=== PATIENT | male | born 1945 | race Caucasian/White ===

== ENCOUNTER 2022-06-30 21:19 | Emergency (ER) | payer MEDICARE ==
--- NOTE | 2022-06-30 21:28 | ERPHSYRPT ---
- History of Present Illness Time Seen by Provider: 06/30/22 21:28 Historian: patient, EMS Exam Limitations: no limitations Physician History: This is a 76-year-old white male patient who has no cardiac history but does have a history of hyperlipidemia and hypertension and presents via EMS service following vomiting and shortness of breath at home. Patient states he "felt off" all day. He took a home COVID test which was negative. After a large supper, patient felt bloated belchy and became short of breath. He then vomited a large amount of emesis. After the emesis, he states his symptoms completely resolved. Upon arrival to the emergency department, he states that he feels pretty good. He denies chest pain at this time. He denies shortness of breath. He has no abdominal pain. Timing/Duration: today Activities at Onset: none Quality: other (Denies pain) Abdominal Pain Onset Location: other (Denies pain) Severity of Pain-Max: none Severity of Pain-Current: none Modifying Factors: Improves With: vomiting (Proved his symptoms) Associated Symptoms: nausea, shortness of breath, vomiting (Improved his symptoms) Previous symptoms: no prior history Allergies/Adverse Reactions: Iodine and Iodide Containing Produc Allergy (Unknown, Verified 06/30/22 21:21) Home Medications: Atorvastatin Calcium [Lipitor] 1 tablet PO HS 04/28/15 [History] Metoprolol Succinate 50 mg [Toprol Xl 50 MG] 50 mg PO DAILY 04/28/15 [History] Tamsulosin HCl 0.4 mg [Flomax 0.4 MG] 0.4 mg PO DAILY 06/30/22 [History] Travel Risk - International Travel Have you traveled outside of the country in past 3 weeks: No - Coronavirus Screening Are you exhibiting any of the following symptoms?: Yes Symptoms: Shortness of Breath, Vomiting/Diarrhea Close contact with a COVID-19 positive Pt in past 14-21 Days: No - Review of Systems Constitutional: No Symptoms Eyes: No Symptoms Ears, Nose, & Throat: No Symptoms Respiratory: Dyspnea Cardiac: No Symptoms Abdominal/Gastrointestinal: Nausea, Vomiting, No Diarrhea, No Constipation Genitourinary Symptoms: No Symptoms Musculoskeletal: No Symptoms Skin: No Symptoms Neurological: No Symptoms Psychological: No Symptoms Endocrine: No Symptoms Hematologic/Lymphatic: No Symptoms Immunological/Allergic: No Symptoms All Other Systems: Reviewed and Negative - Past Medical History Pertinent Past Medical History: Yes Neurological History: No Pertinent History ENT History: No Pertinent History Cardiac History: No Pertinent History, High Cholesterol, Hypertension Respiratory History: No Pertinent History Endocrine Medical History: No Pertinent History Musculoskeletal History: No Pertinent History GI Medical History: No Pertinent History History: No Pertinent History Psycho-Social History: No Pertinent History Male Reproductive Disorders: No Pertinent History - Past Surgical History Past Surgical History: No Neuro Surgical History: No Pertinent History Cardiac: No Pertinent History Respiratory: No Pertinent History Gastrointestinal: No Pertinent History Genitourinary: No Pertinent History Musculoskeletal: No Pertinent History Male Surgical History: No Pertinent History - Social History Smoking Status: Never smoker Exposure to second hand smoke: No Drug Use: none - Nursing Vital Signs Nursing Vital Signs: Initial Vital Signs Temperature 98.2 F 06/30/22 21:23 Pulse Rate 91 H 06/30/22 21:23 Respiratory Rate 16 06/30/22 21:23 Blood Pressure 127/88 06/30/22 21:23 O2 Sat by Pulse Oximetry 96 06/30/22 21:23 Pain Scale Pain Intensity 0 - Physical Exam General Appearance: no apparent distress, alert Eye Exam: PERRL/EOMI, eyes nml inspection Ears, Nose, Throat Exam: normal ENT inspection, moist mucous membranes Neck Exam: normal inspection, non-tender, supple, full range of motion Respiratory Exam: normal breath sounds, lungs clear, airway intact, No chest tenderness, No respiratory distress Cardiovascular Exam: regular rate/rhythm, normal heart sounds, normal peripheral pulses Gastrointestinal/Abdomen Exam: soft, normal bowel sounds, No tenderness Rectal Exam: not done Back Exam: normal inspection, normal range of motion, No CVA tenderness, No vertebral tenderness Extremity Exam: normal inspection, normal range of motion, pelvis stable Neurologic Exam: alert, oriented x 3, cooperative, member service representative II-XII nml as tested, normal mood/affect, nml cerebellar function, nml station & gait, sensation nml Skin Exam: normal color, warm, dry Lymphatic Exam: No adenopathy SpO2 Interpretation: normal O2 Delivery: Room Air - Course Nursing assessment & vital signs reviewed: Yes EKG Interpreted by Me: RATE (91), Sinus Rhythm, NORMAL AXIS, NORMAL INTERVALS, NORMAL QRS, NORMAL ST-T, Other (No acute ischemic changes on today's EKG. This EKG was interpreted by me.) Ordered Tests: Active Orders 24 hr Category Date Time Status EKG-ER Only STAT Care 06/30/22 21:32 Active IV Insertion STAT Care 06/30/22 21:32 Active ABDOMEN AND PELVIS W/0 CONTRAS [CT] Stat Exams 06/30/22 21:32 Taken AMYLASE Stat Lab 06/30/22 22:04 Completed CBC W DIFF Stat Lab 06/30/22 22:04 Completed CMP Stat Lab 06/30/22 22:04 Completed LIPASE Stat Lab 06/30/22 22:04 Completed TROPONIN Q4H Lab 06/30/22 22:04 Completed TROPONIN Q4H Lab 07/01/22 01:45 Ordered TROPONIN Q4H Lab 07/01/22 05:45 Ordered UA W/RFX UR CULTURE Stat Lab 06/30/22 23:07 Completed Medication Summary Discontinued Medications Generic Name Dose Route Start Last Admin Trade Name Freq PRN Reason Stop Dose Admin Sodium Chloride 1,000 mls @ 999 mls/hr 06/30/22 21:32 06/30/22 23:27 Sodium Chloride 0.9% 1000 Ml IV 06/30/22 22:32 Infused .Q1H1M STA Infusion Sodium Chloride Confirm 06/30/22 21:51 Sodium Chloride 0.9% 1000 Ml Administered 06/30/22 21:52 Dose 1,000 mls @ ud .ROUTE .STK-MED ONE Metronidazole 500 mg 06/30/22 23:54 Metronidazole 500 Mg Tablet PO 06/30/22 23:55 STAT ONE Ondansetron HCl 4 mg 06/30/22 21:32 06/30/22 21:54 Ondansetron Hcl 4 Mg/2 Ml Vial IV 06/30/22 21:33 4 mg STAT ONE Administration Ondansetron HCl Confirm 06/30/22 21:51 Ondansetron Hcl 4 Mg/2 Ml Vial Administered 06/30/22 21:52 Dose 4 mg .ROUTE .STK-MED ONE Lab/Rad Data: Laboratory Result Diagrams 06/30/22 22:04 06/30/22 22:04 Laboratory Results 06/30/22 06/30/22 06/30/22 Range/Units 23:07 22:04 22:04 WBC (4.0-10.5) x10^3/uL RBC (4.1-5.6) x10^6/uL Hgb (12.5-18.0) g/dL Hct (42-50) % MCV (78-100) fL MCH (26-32) pg MCHC (32-36) g/dL RDW (11.5-14.0) % Plt Count (150-450) x10^3/uL MPV (7.5-11.0) fL Gran % (36.0-66.0) % Immature Gran % (Auto) (0.00-0.4) % Nucleat RBC Rel Count (0.00-0.1) % Eos # (Auto) (0-0.5) x10^3/uL Immature Gran # (Auto) (0.00-0.03) x10^3u/L Absolute Lymphs (auto) (1.0-4.6) x10^3/uL Absolute Monos (auto) (0.0-1.3) x10^3/uL Absolute Nucleated RBC (0.00-0.01) x10^3u/L Lymphocytes % (24.0-44.0) % Monocytes % (0.0-12.0) % Eosinophils % (0.00-5.0) % Basophils % (0.0-0.4) % Absolute Granulocytes (1.4-6.9) x10^3/uL Basophils # (0-0.4) x10^3/uL Sodium (137-145) mmol/L Potassium (3.5-5.1) mmol/L Chloride (98-107) mmol/L Carbon Dioxide (22-30) mmol/L Anion Gap (5-15) MEQ/L BUN (9-20) mg/dL Creatinine (0.66-1.25) mg/dL Estimated GFR ML/MIN Glucose (74-106) mg/dL Calcium (8.4-10.2) mg/dL Total Bilirubin (0.2-1.3) mg/dL AST (17-59) U/L ALT (0-50) U/L Alkaline Phosphatase (38-126) U/L Troponin I < 0.012 (0.000-0.034) ng/mL Serum Total Protein (6.3-8.2) g/dL Albumin (3.5-5.0) g/dL Amylase (30-110) U/L Lipase (23-300) U/L Urine Color Yellow (Yellow) Urine Appearance Clear (Clear) Urine pH 5.5 (4.6-8.0) Ur Specific [place] 1.025 (1.005-1.030) Urine Protein 30 (Negative) Urine Glucose (UA) Negative (Negative) mg/dL Urine Ketones Trace A (Negative) Urine Blood Negative (Negative) Urine Nitrite Negative (Negative) Urine Bilirubin Negative (Negative) Urine Urobilinogen 0.2 (0.2) mg/dL Ur Leukocyte Esterase Negative (Negative) U Hyaline Cast (Auto) NONE SEEN (0-2) /LPF Urine Microscopic RBC 0-2 (0-5) /HPF Urine Microscopic WBC 0-2 (0-5) /HPF Ur Epithelial Cells None Seen (None Seen) /HPF Urine Bacteria None Seen (None Seen) /HPF Urine Culture Reflexed NO (NO) Influenza Type A Ag NEGATIVE (NEGATIVE) Influenza Type B Ag NEGATIVE (NEGATIVE) RSV (PCR) NEGATIVE (Negative) SARS-CoV-2 (PCR) NEGATIVE (NEGATIVE) 06/30/22 06/30/22 Range/Units 22:04 22:04 WBC 8.6 (4.0-10.5) x10^3/uL RBC 4.98 (4.1-5.6) x10^6/uL Hgb 15.3 (12.5-18.0) g/dL Hct 45.7 (42-50) % MCV 91.8 (78-100) fL MCH 30.7 (26-32) pg MCHC 33.5 (32-36) g/dL RDW 12.3 (11.5-14.0) % Plt Count 195 (150-450) x10^3/uL MPV 10.1 (7.5-11.0) fL Gran % 86.3 H (36.0-66.0) % Immature Gran % (Auto) 0.1 (0.00-0.4) % Nucleat RBC Rel Count 0.0 (0.00-0.1) % Eos # (Auto) 0.15 (0-0.5) x10^3/uL Immature Gran # (Auto) 0.01 (0.00-0.03) x10^3u/L Absolute Lymphs (auto) 0.63 L (1.0-4.6) x10^3/uL Absolute Monos (auto) 0.38 (0.0-1.3) x10^3/uL Absolute Nucleated RBC 0.00 (0.00-0.01) x10^3u/L Lymphocytes % 7.3 L (24.0-44.0) % Monocytes % 4.4 (0.0-12.0) % Eosinophils % 1.7 (0.00-5.0) % Basophils % 0.2 (0.0-0.4) % Absolute Granulocytes 7.43 H (1.4-6.9) x10^3/uL Basophils # 0.02 (0-0.4) x10^3/uL Sodium 136 L (137-145) mmol/L Potassium 4.1 (3.5-5.1) mmol/L Chloride 102 (98-107) mmol/L Carbon Dioxide 29 (22-30) mmol/L Anion Gap 8.7 (5-15) MEQ/L BUN 18 (9-20) mg/dL Creatinine 0.97 (0.66-1.25) mg/dL Estimated GFR > 60.0 ML/MIN Glucose 114 H (74-106) mg/dL Calcium 9.0 (8.4-10.2) mg/dL Total Bilirubin 0.70 (0.2-1.3) mg/dL AST 46 (17-59) U/L ALT 60 H (0-50) U/L Alkaline Phosphatase 79 (38-126) U/L Troponin I (0.000-0.034) ng/mL Serum Total Protein 7.4 (6.3-8.2) g/dL Albumin 4.5 (3.5-5.0) g/dL Amylase 85 (30-110) U/L Lipase 87 (23-300) U/L Urine Color (Yellow) Urine Appearance (Clear) Urine pH (4.6-8.0) Ur Specific [place] (1.005-1.030) Urine Protein (Negative) Urine Glucose (UA) (Negative) mg/dL Urine Ketones (Negative) Urine Blood (Negative) Urine Nitrite (Negative) Urine Bilirubin (Negative) Urine Urobilinogen (0.2) mg/dL Ur Leukocyte Esterase (Negative) U Hyaline Cast (Auto) (0-2) /LPF Urine Microscopic RBC (0-5) /HPF Urine Microscopic WBC (0-5) /HPF Ur Epithelial Cells (None Seen) /HPF Urine Bacteria (None Seen) /HPF Urine Culture Reflexed (NO) Influenza Type A Ag (NEGATIVE) Influenza Type B Ag (NEGATIVE) RSV (PCR) (Negative) SARS-CoV-2 (PCR) (NEGATIVE) - Progress Progress: improved Progress Note: 06/30/22 23:55 CT scan of the abdomen pelvis without contrast shows a picture c/w enteritis 06/30/22 23:57 Counseled pt/family regarding: lab results, diagnosis, need for follow-up, rad results - Departure Departure Disposition: Home Clinical Impression: Enteritis Condition: Stable Critical Care Time: No Referrals: MARGO MCGARRY MD [Primary Care Provider] - Follow up/PCP as directed Additional Instructions: Drink plenty of fluids. take antibiotics as prescribed Prescriptions: Ondansetron ODT 4 MG [Zofran Odt 4 mg] 4 mg PO Q6H PRN PRN #10 tablet PRN Reason: Vomiting Metronidazole 500 mg [Flagyl 500 MG] 500 mg PO TID #21 tablet
[2022-06-30] MEDS ORDERED: Sodium Chloride 0.9% 1000 ML 1,000 ML IV STA (21:32)
[2022-06-30] MEDS ORDERED: Zofran 4 MG/2 ML VIAL IV ONE (21:32)
[2022-06-30] MEDS ORDERED: Zofran 4 MG/2 ML VIAL ONE (21:51)
[2022-06-30] MEDS ORDERED: Sodium Chloride 0.9% 1000 ML 1,000 ML ONE (21:51)
[2022-06-30 22:07] LABS: Absolute Neutrophil Ct (ANC) 7.43 x10^3/uL (1.4-6.9); Basophil (Absolute #) 0.02 x10^3/uL (0-0.4); Eosinophil % 1.7 % (0.00-5.0); Eosinophil (Absolute #) 0.15 x10^3/uL (0-0.5); Hematocrit 45.7 % (42-50); Hemoglobin 15.3 g/dL (12.5-18.0); Lymphocyte (Absolute #) 0.63 x10^3/uL (1.0-4.6); Lymphocytes % 7.3 % (24.0-44.0); Mean Cell Volume 91.8 fL (78-100); Mean Corpuscular Hemoglobin 30.7 pg (26-32); Mean Corpuscular Hgb Concent. 33.5 g/dL (32-36); Mean Platelet Volume 10.1 fL (7.5-11.0); Monocyte (Absolute #) 0.38 x10^3/uL (0.0-1.3); Monocytes % 4.4 % (0.0-12.0); Neutrophil % 86.3 % (36.0-66.0); Platelet Count 195 x10^3/uL (150-450); Red Blood Count 4.98 x10^6/uL (4.1-5.6); Red Cell Distribution Width 12.3 % (11.5-14.0); White Blood Count 8.6 x10^3/uL (4.0-10.5)
[2022-06-30 22:21] LABS: ALBUMIN 4.5 g/dL (3.5-5.0); ALKALINE PHOSPHATASE 79 U/L (38-126); AMYLASE 85 U/L (30-110); ANION GAP 8.7 MEQ/L (5-15); BLOOD UREA NITROGEN 18 mg/dL (9-20); CHLORIDE 102 mmol/L (98-107); Carbon Dioxide 29 mmol/L (22-30); Creatinine 1 0.97 mg/dL (0.66-1.25); EST GLOMERULAR FILTRATION RATE > 60.0 ML/MIN; Glucose 114 mg/dL (74-106); LIPASE 87 U/L (23-300); Potassium 4.1 mmol/L (3.5-5.1); SGOT/AST 46 U/L (17-59); SGPT/ALT 60 U/L (0-50); SODIUM 136 mmol/L (137-145); Total Protein 7.4 g/dL (6.3-8.2)
[2022-06-30 22:42] LABS: INFLUENZA A NEGATIVE (NEGATIVE); INFLUENZA B NEGATIVE (NEGATIVE); RESPIRATORY SYNCTIAL VIRUS NEGATIVE (Negative); SARS-CoV-2 Xpert Express NEGATIVE (NEGATIVE)
[2022-06-30 23:27] LABS: Appearance Clear (Clear); Bacteria None Seen /HPF (None Seen); Bilirubin Negative (Negative); Blood Negative (Negative); Epithelial Cells None Seen /HPF (None Seen); Glucose, Urine Negative (Negative); Hyaline Casts NONE SEEN /LPF (0-2); Ketones Trace (Negative); Leukocyte Esterase Negative (Negative); Nitrite Negative (Negative); Ph 5.5 (4.6-8.0); Protein,Urine Dip 30 (Negative); RBC 0-2 /HPF (0-5); Specific Gravity 1.025 (1.005-1.030); Urobilinogen 0.2 mg/dL (0.2); WBC 0-2 /HPF (0-5)
[2022-06-30 23:29] LABS: ADD URINE CULTURE? NO (NO)
[2022-06-30] MEDS ORDERED: Flagyl 500 MG PO ONE (23:54)
[2022-06-30] MEDS ORDERED: Flagyl 500 MG ONE (23:59)
[2022-07-01 00:10] VITALS: BP 120/70; PULSE 82; O2SAT 95
--- NOTE | 2022-07-01 08:35 | XRAY ---
Indication: Short of breath, vomiting, and weakness. Multiple contiguous axial images obtained through the abdomen and pelvis without contrast. Comparison: None Lung bases clear. Heart not enlarged. Small hiatal hernia. Noncontrasted stomach and bowel loops appear nonobstructed. Several small bowel loops are mildly fluid distended with wall thickening favoring enteritis in the right clinical setting. Normal appendix. Gallbladder demonstrates tiny gallstones in the dependent portion. Right upper kidney demonstrates 1.2 cm benign chunky cortical calcification and 1 cm cortical cyst. Remaining liver, pancreas, spleen, adrenal glands, left kidney, ureters, and bladder are unremarkable for noncontrast exam. Mild scattered aortoiliac calcifications without AAA. Osseous structures intact with mild/moderate degenerative changes throughout the spine and both hips. Small fatty bilateral inguinal hernias. Impression: 1. Mild fluid distended small bowel loops with wall thickening. Rule out enteritis. 2. Tiny gallstones better evaluated with sonogram if clinically warranted. 3. Chronic findings including arteriosclerotic disease, right renal benign chunky calcification/cyst, chronic bony findings, and fatty bilateral groin hernias. Comment: Preliminary interpretation made by C. No critical discrepancy.
== END 2022-07-01 00:25 | disposition home or self-care (01) ==
LOC: ED 21:19
DX: K52.9 Noninfective gastroenteritis and colitis, unspecified (principal); R11.10 Vomiting, unspecified; R06.02 Shortness of breath; E78.5 Hyperlipidemia, unspecified; I10 Essential (primary) hypertension; Z79.899 Other long term (current) drug therapy; Z20.828 Contact with and (suspected) exposure to other viral communicable diseases
CPT/HCPCS: 0241U; 36415; 74176; 80053; 81001; 82150; 83690; 84484; 85025; 93005; 96360; 96374; 99284; J2405; A9270-GY

== ENCOUNTER 2022-08-14 08:16 | Day surgery (SDC) | payer MEDICARE ==
--- NOTE | 2022-08-01 14:06 | HP ---
DATE OF SURGERY: 08/14/2022 HISTORY OF PRESENT ILLNESS: A 76-year-old gentleman apparently had some nausea second episode and had emergency department visit. He had cardiac issue ruled out. CT scan showed cholelithiasis. He denies any current abdominal pain. PAST MEDICAL HISTORY: Hypertension, hyperlipidemia, hypercholesterolemia. Enteritis. He had CT scan had cholelithiasis. Benign prostatic hypertrophy. PAST SURGICAL HISTORY: Colonoscopy by Dr. Wilson in 2015. MEDICATIONS: Atorvastatin, Flomax, Toprol, Lipitor. He had been on metronidazole recently and ondansetron in the past. ALLERGIES: LATEX. IODINE. FAMILY HISTORY: Negative in regards to this problem. SOCIAL HISTORY: No smoking. REVIEW OF SYSTEMS: Fourteen systems reviewed. No chest pain or palpitations. Other systems negative or noncontributory as above and per preadmission questionnaire. PHYSICAL EXAMINATION: BMI 28.25. Height 6'3", weight 220. GENERAL: No acute distress. HEENT: Sclerae nonicteric. NECK: No JVD. CHEST: Breath sounds symmetrical. CVS: Regular rate and rhythm. ABDOMEN: Soft. No peritoneal signs. EXTREMITIES: No cyanosis or edema. NEURO: Alert, oriented, moving extremities symmetrically. RECTAL: Deferred timed to endoscopy exam. PSYCH: Appropriate mood and affect. SKIN: Dry. IMPRESSION: 1) Nausea requiring hospital visit. 2) Cholelithiasis with acute exacerbation of chronic cholecystitis, symptomatic cholelithiasis. PLAN: Discussed options of cholecystectomy. Shown the gallbladder pamphlet and risk sheet, explained the procedure in detail but not limited to bleeding or infection, risk of bowel injury or perforation, risk of missed or nondiagnosis or incomplete exam, risk of trocar injury or hernia, risk of bile leak, bile duct injury, retained stone or sludge possibly requiring further procedure either open or ERCP, perioperative risk of aches, pains, bloating, constipation and/or loose stools possibly even chronic in nature, possibility the procedure may not improve his symptoms. He may need further work up, and/or testing, endoscopy, other studies or procedures. Otherwise regarding his other current medical problems of hyperlipidemia and hypertension, continue medical management on his home medications regarding to that. He understands, will proceed with laparoscopic cholecystectomy with possible open as an outpatient.
--- NOTE | 2022-08-14 08:01 | HP ---
DATE OF SURGERY: 08/14/2022 HISTORY OF PRESENT ILLNESS: The patient is a 76-year-old with some nausea. Cardiac issues were ruled out. CT scan showed cholelithiasis. He did have abdominal pain at the time of my office visit. PAST MEDICAL HISTORY: Hypertension, hyperlipidemia, hypercholesterolemia, enteritis in the past. CT scan showed cholelithiasis. He had benign prostatic hypertrophy in the past. PAST SURGICAL HISTORY: Colonoscopy in the past. Colonoscopy in the past. MEDICATIONS: Atorvastatin, Flomax, metoprolol, Ondansetron in the past. ALLERGIES: IODINE. LATEX. FAMILY HISTORY: Negative in regards to this problem. SOCIAL HISTORY: No smoking. REVIEW OF SYSTEMS: Fourteen systems reviewed. No chest pain or palpitations. Other systems negative or noncontributory as above and per preadmission questionnaire. PHYSICAL EXAMINATION: Weight 220. Height 6'3". BMI 28.25. GENERAL: No acute distress. HEENT: Sclerae nonicteric. NECK: No JVD. CHEST: Breath sounds symmetrical, nonlabored breathing. CVS: Regular rate and rhythm. ABDOMEN: Soft. No peritoneal signs. EXTREMITIES: No significant edema. NEURO: Alert, oriented, moving extremities symmetrically. PSYCH: Appropriate mood and affect. SKIN: Dry. IMPRESSION: 1) Nausea requiring hospital visit. 2) Cholelithiasis, question acute exacerbation of chronic cholecystitis, symptomatic cholelithiasis. PLAN: Discussed options of cholecystectomy. Shown the gallbladder pamphlet and risk sheet. General risk of bleeding or infection, risk of trocar injury or hernia, risk of bowel injury or perforation, risk of missed or nondiagnosis or incomplete exam, risk of risk of bile leak, bile duct injury, retained stone or sludge possibly requiring further procedure either open or ERCP, perioperative risk of aches, pains, bloating, constipation and/or loose stools possibly even chronic in nature, possibility the procedure may not improve his symptoms may need further work up, and/or testing, endoscopy, other studies or procedures. General risk of anesthesia or sedation but not limited to. Otherwise regarding his hyperlipidemia and hypertension continue medical management on his home medications. Will proceed with laparoscopic cholecystectomy with possible open as an outpatient.
[~2022-08-14 08:16] MED LIST: Sensorcaine 0.25% 10 ML ONE
[2022-08-14] MEDS ORDERED: MEFOXIN 2 GM PREMIX** 2 GM/50 ML ML IV ONE (08:57)
[2022-08-14] MEDS ORDERED: Lactated Ringers 1,000 ML IV ONE ×2 (08:57→11:32)
[2022-08-14] MEDS ORDERED: MEFOXIN 2 GM PREMIX** 2 GM/50 ML ML IV SCH (09:00)
[2022-08-14] MEDS ORDERED: Lactated Ringers 1,000 ML IV SCH (09:00)
[2022-08-14] MEDS ORDERED: Xylocaine-Mpf 2% 5 Ml Vial ONE (09:59)
[2022-08-14] MEDS ORDERED: TORAdol 30 mg Injection ONE (09:59)
[2022-08-14] MEDS ORDERED: Decadron 4 MG INJ ONE (09:59)
[2022-08-14] MEDS ORDERED: Zofran 4 MG/2 ML VIAL ONE (09:59)
[2022-08-14] MEDS ORDERED: Zemuron 100 MG/10 ML ONE (09:59)
[2022-08-14] MEDS ORDERED: BRIDION 200MG/2ML IV ONE (09:59)
[2022-08-14] MEDS ORDERED: DIPRIVAN 200 MG/20 ML IV ONE (09:59)
[2022-08-14] MEDS ORDERED: SUBLIMAZE 100 MCG/2 ML ONE ×2 (09:59→12:14)
[2022-08-14] MEDS ORDERED: Magnesium Sulfate 1 GM/2 ML VIAL ONE (10:11)
[2022-08-14] MEDS ORDERED: OFIRMEV 100 ML IV ONE (10:12)
[2022-08-14] MEDS ORDERED: Ketamine HCl 50 MG/ML ONE (10:47)
[2022-08-14] MEDS ORDERED: ULTRAM 50 MG PO ONE (12:47)
[2022-08-14] MEDS ORDERED: MORPHINE SULFATE 4 MG INJ IV PRN (13:25)
[2022-08-14] MEDS ORDERED: MORPHINE SULFATE 4 MG INJ ONE (13:29)
[2022-08-14 13:41] VITALS: BP 153/88; PULSE 66; O2SAT 95
--- NOTE | 2022-08-15 08:21 | OP ---
SURGERY DATE/TIME: 08/14/2022 1110 PREOPERATIVE DIAGNOSIS: Acute exacerbation of chronic cholecystitis, symptomatic cholelithiasis. POSTOPERATIVE DIAGNOSIS: Acute exacerbation of chronic cholecystitis, symptomatic cholelithiasis. PROCEDURE: Laparoscopic cholecystectomy. SURGEON: Dr. Sage Ni. WAITER/WAITRESS COUNTER: Jaime Riley M.D., [facility]. ANESTHESIA: General. ESTIMATED BLOOD LOSS: Minimal. INDICATIONS: As noted above. Risks and benefits explained in detail but not limited to and consent obtained. DESCRIPTION OF PROCEDURE AND FINDINGS: The patient was taken to the operating room. General anesthesia induced. Abdomen prepped and draped in usual sterile fashion. After official time out and no disagreement with planned procedure, a transverse incision made in the supraumbilical area. Fascia grasped, pulled upward. Veress needle inserted and tested with saline. Pneumoperitoneum accomplished insufflating opening pressure of 0-15. An 11 mm bladeless port and camera were inserted without difficulty followed by two - 5 mm right upper quadrant ports and 11 mm epigastric port under direct visualization of the camera. The patient is then carefully positioned. There was extensive omental coating on the gallbladder this took quite some time but slowly and carefully mobilized this off with the aid of hook cautery. Slowly and carefully dissection carried down until the main cystic artery isolated until critical view obtained both anteriorly and posteriorly. The cystic duct had been well skeletonized until critical view obtained anteriorly and posteriorly. Once this is accomplished, the cystic duct and cystic artery were clipped x3 and divided in the usual fashion. The gallbladder is slowly and carefully dissected free. It should be noted that one of the graspers tore a small hole in the gallbladder. There were no visible gross stone spillage. The bile suctioned and irrigated clear and decompressed the gallbladder. The gallbladder is then slowly and carefully dissected free from its dense attachments to the liver bed staying directly on the gallbladder wall, clipping additional oozing side branches off the cystic artery and cystic vein as necessary directly on the gallbladder wall. Just prior to releasing from attachments to the anterior edge of the liver, the liver bed re-inspected. Clips noted in place in the cystic duct and cystic artery stumps. No signs of any active bleeding or bile leakage. I felt there is no benefit from drain placement. Clips noted to be in place cystic duct stump. Gallbladder released from final attachments and placed in a bag, pulled free and passed off. The fascial defect is closed with puncture closure device with #1 Vicryl. Copious amount of irrigation accomplished lateral to the liver and subhepatic space irrigating clear. Liver bed re-inspected. Clips noted to be in place cystic duct and cystic artery stumps. No signs of any active bleeding or bile leakage. It was felt there was no benefit in drain placement. Pneumoperitoneum decompressed. The wound is irrigated out. Skin incision closed with 4-0 Vicryl. Steri-Strips and sterile dressing applied. The patient tolerated the procedure well. There were no immediate complications.
== END 2022-08-14 13:50 | disposition home or self-care (01) ==
LOC: SDC 08:16
PROVIDERS: ATTEND Surgery
DX: K80.10 Calculus of gallbladder with chronic cholecystitis without obstruction (principal)
CPT/HCPCS: J0694; J1100; J1885; J2270; J2405; J2704; J3010; J3475; A9270-GY

== ENCOUNTER 2024-01-14 16:55 | Emergency (ER) | payer MEDICARE ==
[2024-01-14 17:10] VITALS: TEMP 98.3
--- NOTE | 2024-01-14 17:15 | ERPHSYRPT ---
- History of Present Illness Source: patient Exam Limitations: no limitations Patient Subjective Stated Complaint: Pt states "I had left hip replacement surgery by Dr Bean in [place] on january 09 and I started to get constipated and have been fighting that all week and I was able to go a decent amount but fighting trhat I have been not feeling well and sweating and not eating and drinking." Triage Nursing Assessment: pt presented alert and oriented X 3, skin pwd. Pt ambulates with a walker. Pt resting comfortably on the bed. Hx Tetanus, Diphtheria Vaccination/Date Given: No Hx Influenza Vaccination/Date Given: Yes Hx Pneumococcal Vaccination/Date Given: No Immunizations Up to Date: No <KELLEY BAZAN - Last Filed: 01/14/24 17:15> <ERIKA JOYCE - Last Filed: 01/14/24 21:05> - History of Present Illness Time Seen by Provider: 01/14/24 17:15 Allergies/Adverse Reactions: Iodine and Iodide Containing Produc Allergy (Unknown, Verified 08/14/22 08:44) Rash latex Allergy (Unknown, Verified 08/14/22 08:44) Rash coban Allergy (Uncoded 08/14/22 08:43) Rash Home Medications: Atorvastatin Calcium [Lipitor] 1 tablet PO HS 04/28/15 [History] Metoprolol Succinate 50 mg [Toprol Xl 50 MG] 50 mg PO DAILY 04/28/15 [History] Tamsulosin HCl 0.4 mg [Flomax 0.4 MG] 0.4 mg PO DAILY 06/30/22 [History] Mv-Mn/Om3/Dha/Epa/Fish/Lut/Veronique [Ocuvite Adult 50 Plus Softgel] 1 each PO DAILY 08/14/22 [History] Travel Risk - International Travel Have you traveled outside of the country in past 3 weeks: No - Emerging Infectious Disease Are you exhibiting symptoms associated with any current EIDs: No <KELLEY BAZAN - Last Filed: 01/14/24 17:15> - Past Medical History Pertinent Past Medical History: Yes Neurological History: No Pertinent History ENT History: No Pertinent History Cardiac History: High Cholesterol, Hypertension Respiratory History: No Pertinent History Endocrine Medical History: No Pertinent History Musculoskeletal History: No Pertinent History GI Medical History: No Pertinent History History: No Pertinent History Psycho-Social History: No Pertinent History Male Reproductive Disorders: Prostate Problems Other Medical History: enlarged prostate - Past Surgical History Past Surgical History: Yes Neuro Surgical History: No Pertinent History Cardiac: No Pertinent History Respiratory: No Pertinent History Gastrointestinal: Cholecystectomy Genitourinary: No Pertinent History Musculoskeletal: No Pertinent History Male Surgical History: No Pertinent History Other Surgical History: left hip - Social History Smoking Status: Former smoker Exposure to second hand smoke: No Drug Use: none Patient Lives Alone: No - Social Determinants of Health Will the patient participate in the screening: Declined to provide <KELLEY BAZAN - Last Filed: 01/14/24 17:15> - Physical Exam SpO2: 95 <KELLEY BAZAN - Last Filed: 01/14/24 17:15> - Physical Exam General Appearance: no apparent distress Eye Exam: PERRL/EOMI, eyes nml inspection Ears, Nose, Throat Exam: normal ENT inspection Respiratory Exam: normal breath sounds Cardiovascular Exam: regular rate/rhythm Gastrointestinal Exam: soft, other (There is mild distention or patient has good bowel sounds no tympany) <ERIKA JOYCE - Last Filed: 01/14/24 21:05> - Nursing Vital Signs Nursing Vital Signs: Initial Vital Signs Pulse Rate 93 H 01/14/24 17:04 Respiratory Rate 13 01/14/24 17:04 Blood Pressure 130/79 01/14/24 17:04 O2 Sat by Pulse Oximetry 96 01/14/24 17:04 Pain Scale Pain Intensity 0 Ordered Tests: Active Orders 24 hr Category Date Time Status IV Insertion STAT Care 01/14/24 17:34 Active KUB Stat Exams 01/14/24 17:15 Taken AMYLASE Stat Lab 01/14/24 17:49 Completed CBC W DIFF Stat Lab 01/14/24 17:49 Completed CMP Stat Lab 01/14/24 17:49 Completed LIPASE Stat Lab 01/14/24 17:49 Completed Lactic Acid Stat Lab 01/14/24 17:49 Completed UA W/RFX UR CULTURE Stat Lab 01/14/24 19:03 Completed Medication Summary Generic Name Dose Route Start Last Admin Trade Name Freq PRN Reason Stop Dose Admin Sodium Chloride 1,000 mls @ 250 mls/hr 01/14/24 17:45 01/14/24 18:22 Sodium Chloride 0.9% 1000 Ml IV 02/13/24 17:44 250 mls/hr .Q4H FLORECITA Administration Discontinued Medications Generic Name Dose Route Start Last Admin Trade Name Carlito PRN Reason Stop Dose Admin Methylnaltrexone [place] 6 mg 01/14/24 20:26 01/14/24 20:29 Methylnaltrexone [place] 12 Mg/0.6 Ml Ml SQ 01/14/24 20:27 6 mg ONCE STA Administration Methylnaltrexone [place] 12 mg 01/14/24 20:30 01/14/24 20:33 Methylnaltrexone [place] 12 Mg/0.6 Ml Ml SQ 01/14/24 20:31 Not Given NOW ONE Lab/Rad Data: Laboratory Result Diagrams 01/14/24 17:49 01/14/24 17:49 Laboratory Results 01/14/24 01/14/24 01/14/24 Range/Units 19:03 17:49 17:49 WBC (4.23-9.07) x10^3/uL RBC (4.63-6.08) x10^6/uL Hgb (13.7-17.5) g/dL Hct (40.1-51.0) % MCV (79.0-92.2) fL MCH (25.7-32.2) pg MCHC (32.3-36.5) g/dL RDW (11.6-14.4) % Plt Count (163-337) x10^3/uL MPV (9.4-12.4) fL Gran % (34.0-67.9) % Immature Gran % (Auto) (0.001-0.429) % Nucleat RBC Rel Count (0.00-0.2) % Eos # (Auto) (0.04-0.54) x10^3/uL Immature Gran # (Auto) (0.001-0.031) x10^3u/L Absolute Lymphs (auto) (1.32-3.57) x10^3/uL Absolute Monos (auto) (0.30-0.82) x10^3/uL Absolute Nucleated RBC (0.00-0.012) x10^3u/L Lymphocytes % (21.8-53.1) % Monocytes % (5.3-12.2) % Eosinophils % (0.8-7.0) % Basophils % (0.2-1.2) % Absolute Granulocytes (1.78-5.38) x10^3/uL Basophils # (0.01-0.08) x10^3/uL Sodium 134 L (135-145) mmol/L Potassium 4.2 (3.5-5.1) mmol/L Chloride 100 (98-107) mmol/L Carbon Dioxide 28 (22-30) mmol/L Anion Gap 10.2 (5-15) MEQ/L BUN 17 (9-20) mg/dL Creatinine 1.08 (0.66-1.25) mg/dL Estimated GFR 71.1 ML/MIN Glucose 118 H (74-106) mg/dL Lactic Acid 1.2 (0.4-2.0) Calcium 8.6 (8.4-10.2) mg/dL Total Bilirubin 0.80 (0.2-1.3) mg/dL AST 84 H (17-59) U/L ALT 88 H (0-50) U/L Alkaline Phosphatase 286 H (38-126) U/L Serum Total Protein 6.7 (6.3-8.2) g/dL Albumin 3.6 (3.5-5.0) g/dL Amylase 81 (30-110) U/L Lipase 82 (23-300) U/L Urine Color Yellow (Yellow) Urine Appearance Clear (Clear) Urine pH 7.5 (4.6-8.0) Ur Specific [place] 1.015 (1.005-1.030) Urine Protein Trace A (Negative) Urine Glucose (UA) Negative (Negative) mg/dL Urine Ketones Negative (Negative) Urine Blood Negative (Negative) Urine Nitrite Negative (Negative) Urine Bilirubin Negative (Negative) Urine Urobilinogen 1.0 A (0.2) mg/dL Ur Leukocyte Esterase Negative (Negative) U Hyaline Cast (Auto) NONE SEEN (0-2) /LPF Urine Microscopic RBC 0-2 (0-5) /HPF Urine Microscopic WBC 0-2 (0-5) /HPF Ur Epithelial Cells None Seen (None Seen) /HPF Urine Bacteria None Seen (None Seen) /HPF Urine Culture Reflexed NO (NO) 01/14/24 Range/Units 17:49 WBC 7.0 (4.23-9.07) x10^3/uL RBC 3.64 L (4.63-6.08) x10^6/uL Hgb 11.1 L (13.7-17.5) g/dL Hct 33.4 L (40.1-51.0) % MCV 91.8 (79.0-92.2) fL MCH 30.5 (25.7-32.2) pg MCHC 33.2 (32.3-36.5) g/dL RDW 12.3 (11.6-14.4) % Plt Count 260 (163-337) x10^3/uL MPV 9.8 (9.4-12.4) fL Gran % 78.8 H (34.0-67.9) % Immature Gran % (Auto) 0.3 (0.001-0.429) % Nucleat RBC Rel Count 0.0 (0.00-0.2) % Eos # (Auto) 0.06 (0.04-0.54) x10^3/uL Immature Gran # (Auto) 0.02 (0.001-0.031) x10^3u/L Absolute Lymphs (auto) 0.65 L (1.32-3.57) x10^3/uL Absolute Monos (auto) 0.73 (0.30-0.82) x10^3/uL Absolute Nucleated RBC 0.00 (0.00-0.012) x10^3u/L Lymphocytes % 9.3 L (21.8-53.1) % Monocytes % 10.4 (5.3-12.2) % Eosinophils % 0.9 (0.8-7.0) % Basophils % 0.3 (0.2-1.2) % Absolute Granulocytes 5.54 H (1.78-5.38) x10^3/uL Basophils # 0.02 (0.01-0.08) x10^3/uL Sodium (135-145) mmol/L Potassium (3.5-5.1) mmol/L Chloride (98-107) mmol/L Carbon Dioxide (22-30) mmol/L Anion Gap (5-15) MEQ/L BUN (9-20) mg/dL Creatinine (0.66-1.25) mg/dL Estimated GFR ML/MIN Glucose (74-106) mg/dL Lactic Acid (0.4-2.0) Calcium (8.4-10.2) mg/dL Total Bilirubin (0.2-1.3) mg/dL AST (17-59) U/L ALT (0-50) U/L Alkaline Phosphatase (38-126) U/L Serum Total Protein (6.3-8.2) g/dL Albumin (3.5-5.0) g/dL Amylase (30-110) U/L Lipase (23-300) U/L Urine Color (Yellow) Urine Appearance (Clear) Urine pH (4.6-8.0) Ur Specific [place] (1.005-1.030) Urine Protein (Negative) Urine Glucose (UA) (Negative) mg/dL Urine Ketones (Negative) Urine Blood (Negative) Urine Nitrite (Negative) Urine Bilirubin (Negative) Urine Urobilinogen (0.2) mg/dL Ur Leukocyte Esterase (Negative) U Hyaline Cast (Auto) (0-2) /LPF Urine Microscopic RBC (0-5) /HPF Urine Microscopic WBC (0-5) /HPF Ur Epithelial Cells (None Seen) /HPF Urine Bacteria (None Seen) /HPF Urine Culture Reflexed (NO) - Progress Progress: improved <ERIKA JOYCE - Last Filed: 01/14/24 21:05> - Progress Progress Note: 01/14/24 20:33 Patient informs me that he has had some bowel movements that were small, was informed of the need for administration of Relistor up with his constipation he will try it . Relistor was ordered 01/14/24 21:02 Patient was given Relistor and he had significant relief and feels better and wants to go home he was informed of the need to continue his bowel regimen and follow-up with his orthopedic surgeon in the morning (ERIKA JOYCE) Medical Desision Making - Diagnostic Testing Diagnostic test were ordered, analyzed, and reviewed by me: Yes <ERIKA JOYCE - Last Filed: 01/14/24 21:05> <KELLEY BAZAN - Last Filed: 01/14/24 17:15> - Departure Critical Care Time: No <ERIKA JOYCE - Last Filed: 01/14/24 21:05> - Departure Clinical Impression: Constipation, Elevated liver enzymes Condition: Stable Referrals: MARGO MCGARRY MD [Primary Care Provider] - Follow up/PCP as directed
[2024-01-14 17:49] LABS: Absolute Neutrophil Ct (ANC) 5.54 x10^3/uL (1.78-5.38); BASOPHIL % 0.3 % (0.2-1.2); Basophil (Absolute #) 0.02 x10^3/uL (0.01-0.08); Eosinophil % 0.9 % (0.8-7.0); Eosinophil (Absolute #) 0.06 x10^3/uL (0.04-0.54); Hematocrit 33.4 % (40.1-51.0); Hemoglobin 11.1 g/dL (13.7-17.5); IMMATURE GRAN # 0.02 x10^3u/L (0.001-0.031); IMMATURE GRAN % 0.3 % (0.001-0.429); Lymphocyte (Absolute #) 0.65 x10^3/uL (1.32-3.57); Lymphocytes % 9.3 % (21.8-53.1); Mean Cell Volume 91.8 fL (79.0-92.2); Mean Corpuscular Hemoglobin 30.5 pg (25.7-32.2); Mean Corpuscular Hgb Concent. 33.2 g/dL (32.3-36.5); Mean Platelet Volume 9.8 fL (9.4-12.4); Monocyte (Absolute #) 0.73 x10^3/uL (0.30-0.82); Monocytes % 10.4 % (5.3-12.2); Neutrophil % 78.8 % (34.0-67.9); Platelet Count 260 x10^3/uL (163-337); Red Blood Count 3.64 x10^6/uL (4.63-6.08); Red Cell Distribution Width 12.3 % (11.6-14.4)
[2024-01-14 18:20] LABS: ALBUMIN 3.6 g/dL (3.5-5.0); ANION GAP 10.2 MEQ/L (5-15); BILIRUBIN,TOTAL 0.8 mg/dL (0.2-1.3); Calcium 8.6 mg/dL (8.4-10.2); Creatinine 1 1.08 mg/dL (0.66-1.25); EST GLOMERULAR FILTRATION RATE 71.1 ML/MIN; Potassium 4.2 mmol/L (3.5-5.1); Total Protein 6.7 g/dL (6.3-8.2)
[2024-01-14] MEDS ORDERED: Sodium Chloride 0.9% 1000 ML 1,000 ML ONE (18:20)
[2024-01-14] MEDS: Sodium Chloride 0.9% 1000 ML 1,000 ML IV SCH (18:22)
[2024-01-14 19:13] LABS: Appearance Clear (Clear); Bacteria None Seen /HPF (None Seen); Bilirubin Negative (Negative); Blood Negative (Negative); Epithelial Cells None Seen /HPF (None Seen); Glucose, Urine Negative (Negative); Hyaline Casts NONE SEEN /LPF (0-2); Ketones Negative (Negative); Leukocyte Esterase Negative (Negative); Nitrite Negative (Negative); Ph 7.5 (4.6-8.0); Protein,Urine Dip Trace (Negative); RBC 0-2 /HPF (0-5); Specific Gravity 1.015 (1.005-1.030); WBC 0-2 /HPF (0-5)
[2024-01-14 19:16] LABS: ADD URINE CULTURE? NO (NO)
[2024-01-14] MEDS: RELISTOR 12 MG/0.6 ML SQ STA (20:29)
[2024-01-14] MEDS: RELISTOR 12 MG/0.6 ML SQ ONE (20:33)
[2024-01-14 20:46] VITALS: BP 132/75; PULSE 84; RESP 25; O2SAT 99
--- NOTE | 2024-01-15 08:38 | XRAY ---
Indication: Constipation. Comparison: None KUB nonacute and nonobstructed with little scattered colonic fecal debris greatest in ascending colon. Previous cholecystectomy. 1.3 cm right renal calculus/calcification. Osseous structures intact with mild degenerative changes throughout spine and incompletely visualized left total hip arthroplasty.
== END 2024-01-14 21:17 | disposition home or self-care (01) ==
LOC: ED 16:55
DX: K59.00 Constipation, unspecified (principal); R94.5 Abnormal results of liver function studies; E78.5 Hyperlipidemia, unspecified; I10 Essential (primary) hypertension; Z79.899 Other long term (current) drug therapy
CPT/HCPCS: 36415; 74018; 80053; 81001; 82150; 83605; 83690; 85025; 96372; 99283; J2212